=== PATIENT | female | born 1935 | race Caucasian/White ===

== ENCOUNTER 2025-04-17 12:11 | Inpatient (IN) | payer MEDICARE, BC ==
[~2025-04-17] VITALS: Ht 162.6 cm; Wt 51.3 kg
[2025-04-17 14:14] VITALS: BP 149/100; TEMP 97.5
[2025-04-17 14:53] VITALS: BP 149/100; TEMP 97.5
[2025-04-17] MEDS ORDERED: REMEDY ESSENTIAL ZINC PASTE 113 GM TOP PRN (22:00)
[2025-04-17] MEDS ORDERED: SIMV5TAB59 PO (22:40)
[2025-04-17] MEDS ORDERED: SULF1TAB48 PO (22:40)
[2025-04-17] MEDS ORDERED: ACET325T53 PO (22:40)
[2025-04-17] MEDS ORDERED: MAG-79 PO (22:40)
[2025-04-17] MEDS ORDERED: SOTA120T22 PO (22:40)
[2025-04-17] MEDS ORDERED: WARF-58 PO (22:40)
[2025-04-17] MEDS ORDERED: MAGN400O6 PO (22:40)
[2025-04-17] MEDS ORDERED: MULT-24 PO (22:40)
[2025-04-17] MEDS ORDERED: ESCI5TAB PO (22:40)
[2025-04-17] MEDS ORDERED: PANT40TA2 PO (22:40)
[2025-04-17] MEDS ORDERED: DIGO125T PO (22:40)
[2025-04-17 23:35] VITALS: BP 172/85; TEMP 97.4; O2SAT 96
[2025-04-18] MEDS ORDERED: MAGNESIUM HYDROXIDE 30 ML LIQUID UDC PO PRN
[2025-04-18 06:44] VITALS: BP 169/87; TEMP 97.7; O2SAT 95
[2025-04-18] MEDS ORDERED: DIGOXIN 125 MCG TABLET PO SCH (09:00)
[2025-04-18] MEDS ORDERED: SULFAMETH/TRIMETH 800/160 MG TABLET PO SCH (09:00)
[2025-04-18] MEDS: ESCITALOPRAM OXALATE 10 MG TABLET PO SCH (09:05)
[2025-04-18] MEDS: MULTIVITAMINS,THERAPEUTIC TABLET PO SCH (09:05)
[2025-04-18] MEDS: SOTALOL HCL 80 MG TABLET PO SCH (09:06)
[2025-04-18] MEDS: PANTOPRAZOLE SODIUM 40 MG TABLET.DR PO SCH (09:06)
[2025-04-18] MEDS: AMLODIPINE 5 MG TABLET PO SCH (09:06)
[2025-04-18] MEDS: NITROFURANTOIN/NITROFURAN MAC 100 MG CAPSULE PO SCH (09:56)
[2025-04-18] MEDS: ACETAMINOPHEN 325 MG TABLET PO PRN (10:43)
[2025-04-18 16:49] VITALS: BP 143/65; TEMP 97.4; O2SAT 97
[2025-04-18 20:25] LABS: PLATELET COUNT (AUTO) 319 K/uL (179-408); RED BLOOD CELL COUNT(AUTO) 4.69 MIL/uL (3.63-4.92); RED CELL DISTRIBUTION WIDTH 16.6 % (12.3-17.7); WHITE BLOOD COUNT (AUTO) 8.5 K/uL (3.8-11.8)
[2025-04-18] MEDS: SIMVASTATIN 10 MG TABLET PO SCH (20:39)
[2025-04-18 20:45] LABS: CREATININE 0.6 mg/dL (0.6-1.3); SODIUM SERUM 137 mmol/L (136-145); UREA NITROGEN, BLOOD 11 mg/dL (7-18)
[2025-04-18] MEDS ORDERED: SIMVASTATIN 10 MG TABLET PO SCH (21:00)
[2025-04-18 21:57] VITALS: BP 143/92; TEMP 97.3; O2SAT 97
[2025-04-18] MEDS: TEMAZEPAM 7.5 MG CAPSULE PO PRN (22:43)
[2025-04-19] MEDS: MAG HYDROX/AL HYDROX/SIMETH 30 ML LIQUID UDC PO PRN (01:28)
[2025-04-19 05:54] VITALS: BP 149/85; TEMP 97.4; O2SAT 96
[2025-04-19 07:38] LABS: CREATININE 0.7 mg/dL (0.6-1.3); SODIUM SERUM 137 mmol/L (136-145); UREA NITROGEN, BLOOD 11 mg/dL (7-18)
[2025-04-19 08:41] LABS: ASPARTATE AMINOTRANSFERASE 38.0 U/L (15-37); TOTAL PROTEIN, SERUM 6.8 g/dL (6.4-8.2)
[2025-04-19] MEDS: diphenhydrAMINE 50 MG/1 ML VIAL IM ONE (08:44)
[2025-04-19] MEDS: DIGOXIN 125 MCG TABLET PO SCH (09:00)
[2025-04-19] MEDS: MAGNESIUM OXIDE 400 MG TABLET PO ONE (09:32)
[2025-04-19] MEDS: LORAZEPAM 2 MG/1 ML VIAL IM ONE (10:27)
[2025-04-19] MEDS: IV NS 1000 ML 1,000 ML IV PRN (12:42)
[2025-04-19 16:00] VITALS: BP_SYST 104; BP_SYST 120; BP_DIAS 56; BP_DIAS 57; TEMP 97.2; TEMP 97.6; O2SAT 99
[2025-04-19] MEDS ORDERED: WARFARIN SODIUM 5 MG TABLET PO SCH (18:00)
[2025-04-20] MEDS ORDERED: AMLO-212 PO (09:24)
[2025-04-20] MEDS ORDERED: NITR100C6 PO (09:25)
== END 2025-04-19 17:41 | disposition short-term general hospital (02) | DRG 71 ==
PROVIDERS: ADMIT Physical Medicine & Rehabilitation Pain Medicine; ATTEND Physical Medicine & Rehabilitation Pain Medicine
DX: G93.41 Metabolic encephalopathy (principal); F01.54 Vascular dementia, unspecified severity, with anxiety; N39.0 Urinary tract infection, site not specified; B96.20 Unspecified Escherichia coli [E. coli] as the cause of diseases classified elsewhere; G25.81 Restless legs syndrome; G89.29 Other chronic pain; I10 Essential (primary) hypertension; I25.10 Atherosclerotic heart disease of native coronary artery without angina pectoris; I48.91 Unspecified atrial fibrillation; N20.0 Calculus of kidney; R62.7 Adult failure to thrive; Z95.0 Presence of cardiac pacemaker; E86.0 Dehydration; R73.03 Prediabetes; M25.561 Pain in right knee
CPT/HCPCS: 36415; 73502; 83690; 83735; 85025; 85610; 93005; A4663; J0696; J2060; J7040

== ENCOUNTER 2025-04-19 17:48 | Inpatient (IN) | payer MEDICARE, BC ==
[~2025-04-19] VITALS: Ht 162.6 cm; Wt 51.3 kg
[~2025-04-19 17:48] MED LIST: ACET325T53 PO; DIGO125T PO; ESCI5TAB PO; MAG-79 PO; MAGN400O6 PO; MULT-24 PO; PANT40TA2 PO; SIMV5TAB59 PO; SOTA120T22 PO; SULF1TAB48 PO; WARF-58 PO
[2025-04-19] MEDS ORDERED: IOHEXOL 350 100 ML INFUS..BTL ONE (17:54)
[2025-04-19] MEDS: LORAZEPAM 2 MG/1 ML VIAL IV ONE (18:11)
[2025-04-19 18:27] LABS: PLATELET COUNT (AUTO) 292 K/uL (179-408); RED BLOOD CELL COUNT(AUTO) 4.12 MIL/uL (3.63-4.92); RED CELL DISTRIBUTION WIDTH 16.5 % (12.3-17.7); WHITE BLOOD COUNT (AUTO) 9.2 K/uL (3.8-11.8)
[2025-04-19 18:35] LABS: CREATININE 0.6 mg/dL (0.6-1.3); SODIUM SERUM 133 mmol/L (136-145); UREA NITROGEN, BLOOD 10 mg/dL (7-18)
[2025-04-19 18:41] LABS: ASPARTATE AMINOTRANSFERASE 31 U/L (15-37); TOTAL PROTEIN, SERUM 5.3 g/dL (6.4-8.2)
[2025-04-19 19:20] LABS: LACTIC ACID 2.2 mmol/L (0.4-2.0)
[2025-04-19 19:24] LABS: *BILIRUBIN,URIN NEGATIVE (NEGATIVE); *BLOOD, URINE 3+ (NEGATIVE); *CLARITY,URINE SLIGHTLY CLOUDY (CLEAR); *COLOR,URINE YELLOW (YELLOW); *KETONES,URINE 2+ (NEGATIVE); *PROTEIN,URINE 2+ (NEGATIVE); *UROBILINOGEN,URINE 0.2 E.U./dl (NORMAL); LEUKOCYTE ESTERASE ,URINE NEGATIVE (NEGATIVE); NITRITE, URINE NEGATIVE (NEGATIVE); UGLUCOSE NEGATIVE (NEGATIVE)
[2025-04-19 19:34] LABS: SQUAMOUS EPITHELIAL CELL,UR FEW /HPF (NONE SEEN)
[2025-04-19] MEDS ORDERED: ONDANSETRON 4 MG/2 ML VIAL IV PRN (19:45)
[2025-04-19] MEDS ORDERED: MAGNESIUM HYDROXIDE 30 ML LIQUID UDC PO PRN (19:45)
[2025-04-19] MEDS: IV NORMAL SALINE 1000 ML BAG IV ONE (19:53)
[2025-04-19 21:09] VITALS: BP 155/110
[2025-04-19 21:38] VITALS: BP 135/78; TEMP 100.2; O2SAT 93
[2025-04-19] MEDS: IV NS 1000 ML 1,000 ML IV PRN (21:49)
[2025-04-19] MEDS ORDERED: ACETAMINOPHEN 650 MG SUPP.RECT RC PRN (22:30)
[2025-04-20] VITALS (9 sets, daily range): BP systolic 118–159; BP diastolic 53–82; TEMP 97.6–98.5; O2SAT 95–100
[2025-04-20] MEDS: LORAZEPAM 2 MG/1 ML VIAL IV ONE (04:04)
[2025-04-20] MEDS ORDERED: DILTIAZEM HCL IV 125 MG in IV NORMAL SALINE 100 ML IV PRN (04:30)
[2025-04-20] MEDS ORDERED: AMIODARONE HCL 150 MG/3 ML VIAL IV ONE (05:07)
[2025-04-20] MEDS: AMIODARONE HCL IV 150 MG in IV DEXTROSE 5% 100 ML IV ONE (05:23)
[2025-04-20] MEDS: AMIODARONE HCL IV 450 MG in IV DEXTROSE 5% 250 ML IV PRN (05:35)
[2025-04-20] MEDS: PANTOPRAZOLE SODIUM 40 MG TABLET.DR PO SCH (06:43)
[2025-04-20 06:52] LABS: PLATELET COUNT (AUTO) 268 K/uL (179-408); RED BLOOD CELL COUNT(AUTO) 4.21 MIL/uL (3.63-4.92); RED CELL DISTRIBUTION WIDTH 16.7 % (12.3-17.7); WHITE BLOOD COUNT (AUTO) 9.5 K/uL (3.8-11.8)
[2025-04-20 06:57] LABS: CREATININE 0.5 mg/dL (0.6-1.3); UREA NITROGEN, BLOOD 7 mg/dL (7-18)
[2025-04-20 07:04] LABS: SODIUM SERUM 135 mmol/L (136-145)
[2025-04-20] MEDS ORDERED: AMLO-212 PO (09:24)
[2025-04-20] MEDS ORDERED: NITR100C6 PO (09:25)
[2025-04-20] MEDS: POTASSIUM CHLORIDE 50 ML IV SCH (09:28)
[2025-04-20 10:55] LABS: *BILIRUBIN,URIN NEGATIVE (NEGATIVE); *BLOOD, URINE 3+ (NEGATIVE); *CLARITY,URINE CLEAR (CLEAR); *COLOR,URINE YELLOW (YELLOW); *KETONES,URINE NEGATIVE (NEGATIVE); *PROTEIN,URINE TRACE (NEGATIVE); *UROBILINOGEN,URINE 0.2 E.U./dl (NORMAL); LEUKOCYTE ESTERASE ,URINE TRACE (NEGATIVE); NITRITE, URINE NEGATIVE (NEGATIVE); UGLUCOSE NEGATIVE (NEGATIVE)
[2025-04-20] MEDS: CEFEPIME (MAXEPIME) 1 G in IV DEXTROSE 5% 50 ML IV SCH (14:08)
[2025-04-20] MEDS: MAGNESIUM SULFATE/D5W 100 ML IV SCH (14:59)
[2025-04-20] MEDS: POTASSIUM PHOSPHATE MM 15 MMOL in IV NORMAL SALINE 250 ML IV ONE (18:39)
[2025-04-21] VITALS (8 sets, daily range): BP systolic 118–156; BP diastolic 49–70; TEMP 96.3–98.2; O2SAT 97–99
[2025-04-21 07:03] LABS: PLATELET COUNT (AUTO) 258 K/uL (179-408); RED BLOOD CELL COUNT(AUTO) 4.23 MIL/uL (3.63-4.92); RED CELL DISTRIBUTION WIDTH 16.7 % (12.3-17.7); WHITE BLOOD COUNT (AUTO) 9.5 K/uL (3.8-11.8)
[2025-04-21 07:09] LABS: CREATININE 0.6 mg/dL (0.6-1.3); SODIUM SERUM 139 mmol/L (136-145); UREA NITROGEN, BLOOD 7 mg/dL (7-18)
[2025-04-21] MEDS: POTASSIUM CHLORIDE 20 MEQ TAB.PRT.SR PO ONE (09:45)
[2025-04-21] MEDS: POTASSIUM CHLORIDE 50 ML IV SCH ×2 (09:53→17:17)
[2025-04-21] MEDS ORDERED: POTASSIUM CHLORIDE 20 MEQ TAB.PRT.SR PO SCH (11:00)
[2025-04-21] MEDS ORDERED: DIGOXIN NG SCH (13:00)
[2025-04-21] MEDS: SOTALOL HCL 80 MG TABLET PO SCH ×2 (13:30→20:27)
[2025-04-21] MEDS: DIGOXIN 125 MCG TABLET PO SCH (13:30)
[2025-04-22 00:36] VITALS: BP 115/55; TEMP 98.2; O2SAT 98
[2025-04-22 04:00] VITALS: BP 112/49; TEMP 98.8; O2SAT 99
[2025-04-22] MEDS: ACETAMINOPHEN 325 MG TABLET PO PRN (05:27)
[2025-04-22 07:03] LABS: PLATELET COUNT (AUTO) 269 K/uL (179-408); RED BLOOD CELL COUNT(AUTO) 3.99 MIL/uL (3.63-4.92); RED CELL DISTRIBUTION WIDTH 17.5 % (12.3-17.7); WHITE BLOOD COUNT (AUTO) 10.8 K/uL (3.8-11.8)
[2025-04-22 07:58] LABS: CREATININE 0.4 mg/dL (0.6-1.3); SODIUM SERUM 135 mmol/L (136-145); UREA NITROGEN, BLOOD 8 mg/dL (7-18)
[2025-04-22 08:00] VITALS: BP 152/44; TEMP 97; O2SAT 97
[2025-04-22 12:00] VITALS: BP 114/56; TEMP 97.3; O2SAT 97
[2025-04-22] MEDS: NEUTRA PHOS PACKET PO ONE (13:00)
[2025-04-22] MEDS: SODIUM PHOSPHATE MM 15 MMOL in IV NORMAL SALINE 250 ML IV ONE (15:50)
[2025-04-22 16:00] VITALS: BP 133/57; TEMP 97.2; O2SAT 97
[2025-04-22] MEDS: ENSURE ENLIVE (VAN) 240 ML LIQUID PO SCH (17:00)
[2025-04-22] MEDS: WARFARIN SODIUM 5 MG TABLET PO SCH (17:38)
[2025-04-22 20:38] VITALS: O2SAT 97
[2025-04-23] MEDS: QUETIAPINE FUMARATE 25 MG TABLET PO SCH (02:15)
[2025-04-23 06:32] VITALS: BP 140/106; TEMP 97.5; O2SAT 94
[2025-04-23 06:51] LABS: CREATININE 0.4 mg/dL (0.6-1.3); SODIUM SERUM 146 mmol/L (136-145); UREA NITROGEN, BLOOD 8 mg/dL (7-18)
[2025-04-23] MEDS: MAGNESIUM SULFATE/D5W 100 ML IV SCH (09:39)
[2025-04-23] MEDS: POTASSIUM CHLORIDE 50 ML IV SCH (09:40)
[2025-04-23 11:31] VITALS: BP 106/61; TEMP 98.2; O2SAT 98
[2025-04-23 15:31] VITALS: BP 142/56; TEMP 97.8; O2SAT 97
[2025-04-23] MEDS ORDERED: APIXABAN 5 MG TABLET PO SCH (17:00)
[2025-04-23] MEDS: APIXABAN 2.5 MG TABLET PO SCH (17:42)
[2025-04-23 19:00] VITALS: BP 143/52; TEMP 98.2; O2SAT 96
[2025-04-23] MEDS ORDERED: QUETIAPINE FUMARATE 25 MG TABLET PO SCH (21:00)
[2025-04-24 07:08] VITALS: BP 149/60; TEMP 98; O2SAT 95
[2025-04-24 07:17] LABS: PLATELET COUNT (AUTO) 274 K/uL (179-408); RED BLOOD CELL COUNT(AUTO) 4.23 MIL/uL (3.63-4.92); RED CELL DISTRIBUTION WIDTH 16.7 % (12.3-17.7); WHITE BLOOD COUNT (AUTO) 7.1 K/uL (3.8-11.8)
[2025-04-24 07:33] LABS: CREATININE 0.6 mg/dL (0.6-1.3); SODIUM SERUM 146 mmol/L (136-145); UREA NITROGEN, BLOOD 6 mg/dL (7-18)
[2025-04-24] MEDS: MAGNESIUM SULFATE/D5W 100 ML IV SCH (08:56)
[2025-04-24] MEDS: POTASSIUM CHLORIDE 50 ML IV SCH (09:06)
[2025-04-24 11:42] VITALS: BP 129/60; TEMP 97.9; O2SAT 97
[2025-04-24] MEDS: ENSURE WITH FIBER 237 ML LIQUID (CHOCOLATE) PO SCH (17:30)
[2025-04-24 19:05] VITALS: BP 131/68; TEMP 98; O2SAT 93
[2025-04-25 06:41] VITALS: BP 117/76; TEMP 97.5; O2SAT 90
[2025-04-25 06:46] LABS: PLATELET COUNT (AUTO) 297 K/uL (179-408); RED BLOOD CELL COUNT(AUTO) 4.41 MIL/uL (3.63-4.92); RED CELL DISTRIBUTION WIDTH 16.8 % (12.3-17.7); WHITE BLOOD COUNT (AUTO) 7.0 K/uL (3.8-11.8)
[2025-04-25 07:35] LABS: ASPARTATE AMINOTRANSFERASE 26 U/L (15-37); CREATININE 0.5 mg/dL (0.6-1.3); SODIUM SERUM 139 mmol/L (136-145); TOTAL PROTEIN, SERUM 5.8 g/dL (6.4-8.2); UREA NITROGEN, BLOOD 8 mg/dL (7-18)
[2025-04-25] MEDS: POTASSIUM CHLORIDE 10 MEQ TAB.PRT.SR PO ONE (10:03)
[2025-04-25 12:00] VITALS: BP 113/68; TEMP 98.6; O2SAT 95
[2025-04-25] MEDS: ACIDOPHILUS/BULGARICUS CHEW TAB PO SCH (13:09)
[2025-04-25 16:00] VITALS: BP 144/73; TEMP 98; O2SAT 98
[2025-04-25 19:16] VITALS: BP 137/53; TEMP 97.7; O2SAT 94
[2025-04-26 05:50] VITALS: BP 143/49; TEMP 97.5; O2SAT 97
[2025-04-26 10:37] VITALS: BP 130/61; TEMP 97.8; O2SAT 95
[2025-04-26 16:48] VITALS: BP 136/56; TEMP 97.8; O2SAT 96
[2025-04-26 19:00] VITALS: BP 126/41; TEMP 97.7; O2SAT 97
[2025-04-27 06:00] VITALS: BP 129/87; TEMP 97.6; O2SAT 98
[2025-04-27 07:37] LABS: PLATELET COUNT (AUTO) 283 K/uL (179-408); RED BLOOD CELL COUNT(AUTO) 4.37 MIL/uL (3.63-4.92); RED CELL DISTRIBUTION WIDTH 17.2 % (12.3-17.7); WHITE BLOOD COUNT (AUTO) 6.3 K/uL (3.8-11.8)
[2025-04-27 07:56] LABS: ASPARTATE AMINOTRANSFERASE 23 U/L (15-37); CREATININE 0.7 mg/dL (0.6-1.3); SODIUM SERUM 143 mmol/L (136-145); TOTAL PROTEIN, SERUM 6.2 g/dL (6.4-8.2); UREA NITROGEN, BLOOD 9 mg/dL (7-18)
[2025-04-27 09:46] VITALS: BP 120/65; TEMP 97.8; O2SAT 98
[2025-04-27 15:37] VITALS: BP 141/57; TEMP 97.6; O2SAT 94
[2025-04-27 19:00] VITALS: BP 122/48; TEMP 97.6; O2SAT 96
[2025-04-28 06:00] VITALS: BP 124/45; TEMP 97.9; O2SAT 96
[2025-04-28] MEDS: REMEDY ESSENTIAL ZINC PASTE 113 GM TP PRN (08:15)
[2025-04-28 10:44] VITALS: BP 128/45; TEMP 98.2; O2SAT 100
[2025-04-28] MEDS ORDERED: APIX2.5T PO (14:02)
[2025-04-28] MEDS ORDERED: CRAN450T9 PO (14:02)
[2025-04-28] MEDS ORDERED: SOTA80TA26 PO (14:02)
[2025-04-28] MEDS ORDERED: ACID1TAB4 PO (14:02)
[2025-04-28] MEDS ORDERED: MENT113O TP (14:02)
[2025-04-28] MEDS ORDERED: Lactose-Free Food/Fiber PO (14:02)
== END 2025-04-28 16:00 | DRG 871 ==
LOC: ER 17:50 → TELE3 18:40 → TELE-TD3 04-20 04:45 → TELE3 04-21 16:07 → MEDSURG3 04-22 12:12
DX: A41.9 Sepsis, unspecified organism (principal); E43 Unspecified severe protein-calorie malnutrition; G92.8 Other toxic encephalopathy; N39.0 Urinary tract infection, site not specified; G45.9 Transient cerebral ischemic attack, unspecified; F02.84 Dementia in other diseases classified elsewhere, unspecified severity, with anxiety; E87.1 Hypo-osmolality and hyponatremia; E87.20 Acidosis, unspecified; Z68.1 Body mass index [BMI] 19.9 or less, adult; I45.2 Bifascicular block; R65.20 Severe sepsis without septic shock; E83.42 Hypomagnesemia; E86.0 Dehydration; E87.6 Hypokalemia; R62.7 Adult failure to thrive; I48.0 Paroxysmal atrial fibrillation; E78.5 Hyperlipidemia, unspecified; E88.09 Other disorders of plasma-protein metabolism, not elsewhere classified; I25.10 Atherosclerotic heart disease of native coronary artery without angina pectoris; I10 Essential (primary) hypertension; R79.1 Abnormal coagulation profile; R29.810 Facial weakness; I08.3 Combined rheumatic disorders of mitral, aortic and tricuspid valves; G31.9 Degenerative disease of nervous system, unspecified; J34.1 Cyst and mucocele of nose and nasal sinus; J33.8 Other polyp of sinus; Z95.0 Presence of cardiac pacemaker; Z79.01 Long term (current) use of anticoagulants; Z78.1 Physical restraint status; Z75.1 Person awaiting admission to adequate facility elsewhere
CPT/HCPCS: 36415; 70450; 70496; 71045; 83605; 83735; 84100; 84443; 84484; 85025; 85610; 85730; 86850; 86900; 86901; 87040; 87086; 93005; 93307; A4606; A4663; A6209; G0378; J0282; J0692; J2060; J3475; J3480; J3490; J7040; J7050; Q9967